=== PATIENT | female | born 1985 | race Caucasian/White ===

== ENCOUNTER → 2016-09-15 | Outpatient (CLI) | payer BC, OTHER | END | disposition home or self-care (01) | LOC: LABWHC1 11:33 | PROVIDERS: ATTEND Obstetrics & Gynecology | DX: Z34.80 Encounter for supervision of other normal pregnancy, unspecified trimester (principal); Z3A.00 Weeks of gestation of pregnancy not specified | CPT/HCPCS: 36415; 84702 ==

== ENCOUNTER → 2016-09-17 | Outpatient (CLI) | payer BC, OTHER | END | disposition home or self-care (01) | LOC: LABWHC1 12:19 | PROVIDERS: ATTEND Obstetrics & Gynecology | DX: O00.90 Unspecified ectopic pregnancy without intrauterine pregnancy (principal) | CPT/HCPCS: 36415; 84702 ==

== ENCOUNTER → 2016-09-22 | Outpatient (CLI) | payer BC, OTHER ==
--- NOTE | 2016-09-22 16:25 | US ---
EXAMINATION TYPE: US OB <=14 wks transvag DATE OF EXAM: 09/22/2016 3:52 PM COMPARISON: None CLINICAL HISTORY: 30-year-old female Confirm Dates Z36. Right pelvic pain, history of ectopic TECHNIQUE: Transvaginal (TV) and Transabdominal (TA) FINDINGS: EXAM MEASUREMENTS: GESTATIONAL AGE / DATING Physician Established: not established Dates by LMP: (6 weeks/1 days) EDC: 05/17/17 Dates by First Scan: no prior Dates by Current Scan: N/A MATERNAL ANATOMY Uterus: 8.8 x 4.4 x 5.2cn Right Ovary: 3.4 x 2.8 x 1.8cm Left Ovary: 1.9 x 1.4 x 1.3cm Post CDS / Adnexa: complex mass noted in the right adnexa measuring 2.1 x 1.7 x 1.4 cm composed of a gestational sac, yolk sac, and pole demonstrating cardiac activity (heart rate 118 BPM). Small amount of free fluid noted right adnexa and cul-de-sac Presence of free fluid: yes Presence of corpus luteal cyst: yes, right ovary = 1.7 x 1.0 x 1.3cm GESTATION / SURVEY CRL: 0.3cm (6 weeks/0 days) located within right adnexa. No intrauterine is seen. Yolk Sac (normal less than 6mm): 0.3cm Heart Rate: 118 bpm Date of LMP: 08/10/16 Beta HcG (if available): unavailable IMPRESSION: 1. Findings compatible with a 2.1 cm viable right adnexal ectopic . The pole measures 3 mm (6 weeks 0 days) and demonstrates cardiac activity. Appropriate clinical management is recommend ed. 2. Small amount of right adnexal and cul-de-sac free fluid.
[2016-09-22 17:36] LABS: CH 31.2; CHCM 34.2; HCT 37.5 % (34.0-46.0); HDW 2.37; MCH 31.8 pg (25.0-35.0); MCHC 34.7 g/dL (31.0-37.0); MCV 91.7 fL (80.0-100.0); Mean Platelet Volume 7.3; RBC 4.09 m/uL (3.80-5.40); RDW 11.9 % (11.5-15.5); WBC 9.9 k/uL (3.8-10.6)
[2016-09-22 17:37] LABS: ALT 43 U/L (9-52); AST 22 U/L (14-36); Blood Urea Nitrogen 10 mg/dL (7-17); Non-African American GFR(MDRD) >60 (>60 ml/min/1.73 sqM)
[2016-09-22 17:51] LABS: HCG,Quantitative Serum 12455.5 mIU/mL
== END | disposition home or self-care (01) ==
LOC: RADUSWWP 15:26
PROVIDERS: ATTEND Obstetrics & Gynecology
DX: Z36 Encounter for antenatal screening of mother (principal); Z87.59 Personal history of other complications of pregnancy, childbirth and the puerperium
CPT/HCPCS: 36415; 76801; 76817; 82565; 84450; 84460; 84520; 84702; 85027

== ENCOUNTER → 2016-09-23 | Outpatient (CLI) | payer BC, OTHER ==
[~2016-09-23] MED LIST: METHOTREXATE SODIUM (PF) 25 MG/ML 2 ML VIAL IM NR
[2016-09-23 11:38] VITALS: BP 115/58; PULSE 61; RESP 18; TEMP 98.2
== END | disposition home or self-care (01) ==
LOC: PROCWHC3 11:16
PROVIDERS: ATTEND Obstetrics & Gynecology
DX: O00.90 Unspecified ectopic pregnancy without intrauterine pregnancy (principal); Z3A.00 Weeks of gestation of pregnancy not specified
CPT/HCPCS: 96402; J9260

== ENCOUNTER 2016-10-01 15:43 | Day surgery (SDC) | payer BC, OTHER ==
--- NOTE | 2016-10-01 15:45 | P.HPOB ---
History of Present Illness H&P Date: 10/01/16 Chief Complaint: ectopic 30 year old presents for laparoscopic removal of ectopic , possible RS and chromotubation. She did have methotrexate last week but it did not drop the bhcg and there is still a heart beat on US today but the is in the right adnexa. Review of Systems All systems: negative Constitutional: Denies chills, Denies fever Eyes: denies blurred vision, denies pain Ears, nose, mouth and throat: Denies headache, Denies sore throat Cardiovascular: Denies chest pain, Denies shortness of breath Respiratory: Denies cough Gastrointestinal: Denies abdominal pain, Denies diarrhea, Denies nausea, Denies vomiting Genitourinary: Denies dysuria, Denies hematuria Musculoskeletal: Denies myalgias Integumentary: Denies pruritus, Denies rash Neurological: Denies numbness, Denies weakness Psychiatric: Denies anxiety, Denies depression Endocrine: Denies fatigue, Denies weight change Past Medical History Past Medical History: GERD/Reflux Additional Past Medical History / Comment(s): OB history: she has had 3 C/S, one SAB, this is her second ectopic after a tubal ligation reversal. History of Any Multi-Drug Resistant Organisms: None Reported Past Surgical History: Section, Hernia Repair, Tubal Ligation (and reversal) Additional Past Surgical History / Comment(s): D & C Past Anesthesia/Blood Transfusion Reactions: No Reported Reaction Past Psychological History: No Psychological Hx Reported Smoking Status: Current every day smoker Past Alcohol Use History: None Reported Past Drug Use History: None Reported Medications and Allergies Allergies Allergy/AdvReac Type Severity Reaction Status Date / Time bee pollen [Bee Pollen] Allergy Anaphylaxis Verified 09/23/16 11:28 Penicillins Allergy throat Verified 09/23/16 11:28 swelling Exam Osteopathic Statement: *. No significant issues noted on an osteopathic structural exam other than those noted in the History and Physical/Consult. HEart: RRR Lungs: CTAB Abdomen: soft, nontender Extremeties: neg anthony's Assessment and Plan (1) Ectopic Status: Acute Plan: 1. laparocopic removal of ectopic , possible RS and chromotubation
[2016-10-01] MEDS ORDERED: LACTATED RINGERS 1,000 ML IV ONE ×2 (15:54→17:09)
[2016-10-01] MEDS ORDERED: DEXAMETHASONE SOD PHOS (MDV) 100 MG/10 ML VIAL IVP ONE (15:55)
[2016-10-01] MEDS ORDERED: LIDOCAINE 1% 20 ML VIAL (10MG/ML) FOR IV START INTRADERMA ONE (15:55)
[2016-10-01] MEDS ORDERED: ONDANSETRON 4 MG/2 ML VIAL IVP ONE (15:56)
[2016-10-01] MEDS ORDERED: MIDAZOLAM 2 MG/2 ML VIAL ONE (16:37)
[2016-10-01] MEDS ORDERED: ROCURONIUM BROMIDE 10 MG/ML 10 ML VIAL IV ONE (16:37)
[2016-10-01] MEDS ORDERED: SUCCINYLCHOLINE CHLORIDE 100 MG/5 ML SYR IV ONE (16:37)
[2016-10-01] MEDS ORDERED: PROPOFOL 10 MG/ML 20 ML VIAL IV ONE (16:37)
[2016-10-01] MEDS ORDERED: MEPERIDINE 50 MG/ML SYRINGE ONE (16:37)
[2016-10-01] MEDS ORDERED: fentaNYL (PF) 50 MCG/ML 2 ML AMP ONE (16:37)
[2016-10-01] MEDS ORDERED: LIDOCAINE 1% INJ 10MG/ML (20 ML MDV) ONE (16:37)
[2016-10-01] MEDS ORDERED: NEOSTIGMINE 1 MG/ML 10 ML VIAL ONE (16:37)
[2016-10-01] MEDS ORDERED: GLYCOPYRROLATE 0.2 MG/ML 2 ML VIAL ONE (16:37)
[2016-10-01] MEDS ORDERED: BUPIVACAINE (PF) 0.25% 30 ML VIAL SQ ONE (17:12)
--- NOTE | 2016-10-01 17:42 | P.OP ---
Date of Procedure: 10/01/16 Preoperative Diagnosis: 1. Ectopic Postoperative Diagnosis: 1. Ectopic Procedure(s) Performed: Laparoscopic right salpingectomy with removal of ectopic, chromotubation of the left fallopian tube Anesthesia: RENITA Surgeon: Brittni Watson [employer] Professor #1: Herbert Hamilton Estimated Blood Loss (ml): 5 IV fluids (ml): 950 Urine output (ml): 15 Pathology: other (Right fallopian tube with right ectopic ) Condition: stable Disposition: PACU Operative Findings: Ectopic in the right fallopian tube which was extremely dilated. Pain left fallopian tube seen by chromotubation and spillage of dye. Description of Procedure: Patient taken the operating room where general anesthesia was obtained without difficulty. She is prepped and draped in normal sterile fashion dorsal lithotomy position, legs placed in the Prosper stirrups. Bladder was drained of all urine. [place] speculum placed in the vagina and the anterior lip of the cervix was grasped with single-tooth tenaculum. The cervix was dilated to allow the kroner to be passed and placed. Attention was then turned to the abdomen and gloves were changed. A 10 mm infraumbilical incision was made the scalpel and 10 mm optical trocar was placed under direct visualization. Survey of the pelvis revealed a normal uterus and normal bilateral ovaries normal left fallopian tube but a dilated right fallopian tube with the mass inside presumed to be the ectopic . A 5 mm suprapubic incision was made and a 5 mm optical trochars placed under direct visualization. A 10 mm incision was made on the left side of the abdomen and a 10 mm optical trocar placed under direct visualization. The right fallopian tube was grasped with a laparoscopic grasper and the LigaSure was used to seal and cut the mesosalpinx to remove the right fallopian tube. A 10 mm Endo Catch bag was then placed into the abdomen and the right fallopian tube with ectopic replaced in the Endo Catch bag. The Endo Catch bag along with the specimen were removed through the left port. Diluted methylene blue was pushed through the kroner and spillage was seen from the left fallopian tube. The pelvis was irrigated. Allis was removed from the abdomen. The incisions were closed with 0 Vicryl and the fascial layer and 4-0 Vicryl subcuticular fashion. Patient tolerated procedure well, sponge and instrument counts are correct 2 and she was taken to recovery room in stable condition.
[2016-10-01 17:46] VITALS: TEMP 97.4
[2016-10-01] MEDS ORDERED: KETOROLAC 30 MG/ML 1 ML VIAL IVP ONE (18:01)
[2016-10-01 18:06] VITALS: RESP 16
[2016-10-01 18:46] VITALS: BP 113/63; PULSE 58
== END 2016-10-01 18:49 | disposition home or self-care (01) ==
LOC: OR 15:43
PROVIDERS: ATTEND Obstetrics & Gynecology
DX: O00.10 Tubal pregnancy without intrauterine pregnancy (principal); F17.200 Nicotine dependence, unspecified, uncomplicated; Z88.0 Allergy status to penicillin
CPT/HCPCS: 88305; 59151; J2250; J2710; J2175; J2405; J2001; J3010; J1885; J1100; J0330; J2704; 76801; 76817

== ENCOUNTER → 2016-10-01 | Outpatient (CLI) | payer BC, OTHER ==
--- NOTE | 2016-10-01 12:27 | US ---
EXAMINATION TYPE: US OB <=14 wks transvag DATE OF EXAM: 10/01/2016 11:38 AM COMPARISON: on PACS CLINICAL HISTORY: 30-year-old female F/U to abnormal Z36. History of right adnexal ectopic, methotrex ate 09/23/2016, no pain, increase in bHCG Date of LMP: 08/10/2017 Beta HcG (if available): not available EXAM PERFORMED: Transvaginal (TV) and Transabdominal (TA) FINDINGS: EXAM MEASUREMENTS: GESTATIONAL AGE / DATING Dates by LMP: (7 weeks/3 days) EDC: 05/17/2017 Dates by Current Scan for: ( 6 weeks/2 days) EDC: 05/23/2017 MATERNAL ANATOMY Uterus: 9.5 x 5.0 x 3.9 cm Right Ovary: 3.0 x 2.2 x 2.0 cm Left Ovary: 2.0 x 1.0 x 1.6 cm Post CDS / Adnexa: free fluid Presence of free fluid: posterior cul de sac Right adnexal ectopic again demonstrated now measuring 3.1 x 2.7 x 2.7 cm. Presence of corpus luteal cyst: right ovary= 1.2 x 1.7 x 1.2 cm GESTATION / SURVEY CRL: 0.7 cm (6 weeks/4 days) MSD: 1.4 cm (6 weeks/0 days) Yolk Sac (normal less than 6mm): 2.8mm Heart Rate: 145 bpm Rhythm: Normal IUP: RT adnexal ectopic IMPRESSION: Live right adnexal ectopic persists, measuring 3.1 cm. The gestation is abnormal as there h as been less growth than expected since 09/22/2016. pole measures 7 mm placing the gestational a ge at 6 weeks 4 days (vs 6w0D on 09/22/16).
== END | disposition home or self-care (01) ==
LOC: RADUSWWP 10:48
PROVIDERS: ATTEND Obstetrics & Gynecology
DX: O00.80 Other ectopic pregnancy without intrauterine pregnancy (principal); Z3A.01 Less than 8 weeks gestation of pregnancy
CPT/HCPCS: 76801; 76817